=== PATIENT | female | born 1995 | race Caucasian/White ===

== ENCOUNTER 2018-06-27 18:14 | Emergency (ER) | payer MEDICAID ==
[~2018-06-27] VITALS: Ht 154.9 cm; Wt 63.5 kg
[2018-06-27 19:29] VITALS: BP 121/84
--- NOTE | 2018-06-27 19:38 | NUR ---
PT AMBULATED TO LOBBY. PROVIDING URINE.
[2018-06-27] MEDS ORDERED: ONDANSETRON 4 MG ODT PO ONE (19:40)
--- NOTE | 2018-06-27 19:50 | NUR ---
PT PLACED IN BED 4.
[2018-06-27 19:57] LABS: BASOPHILS % (AUTO) 0.5 % (0.0-2.0); EOSINOPHILS % (AUTO) 0.4 % (0.0-4.0); HEMOGLOBIN 14.2 g/dL (12.0-16.0); LYMPHOCYTES # (AUTO) 2.1 K/uL (2.5-16.5); LYMPHOCYTES % (AUTO) 23.6 % (20.5-51.1); MEAN CORPUSCULAR HEMOGLOBIN 33 pg (27-31); MEAN CORPUSCULAR HGB CONC 36 g/dL (33-37); MEAN CORPUSCULAR VOLUME 93.2 fL (80-94); MONOCYTES # (AUTO) 0.4 K/uL (0.8-1.0); MONOCYTES % (AUTO) 4.6 % (1.7-9.3); NEUTROPHILS # (AUTO) 6.3 K/uL (1.8-7.7); NEUTROPHILS % (AUTO) 70.9 % (42.2-75.2); PLATELET COUNT (AUTO) 245 K/uL (140-450); RED BLOOD CELL COUNT(AUTO) 4.29 MIL/uL (4.20-5.40); RED CELL DISTRIBUTION WIDTH 12.9 % (11.6-13.7); WHITE BLOOD COUNT (AUTO) 8.9 K/uL (4.8-10.8)
[2018-06-27 19:57] LABS: APPEARANCE,URINE CLEAR (CLEAR); BILIRUBIN,URINE NEGATIVE (NEGATIVE); BLOOD, URINE NEGATIVE (NEGATIVE); COLOR,URINE YELLOW (YELLOW); LEUKOCYTE ESTERASE ,URINE NEGATIVE (NEGATIVE); NITRITE, URINE NEGATIVE (NEGATIVE); PH,URINE 6.5 (5.0-9.0); UGLUCOSE NEGATIVE (NEGATIVE)
[2018-06-27] MEDS ORDERED: NACL 0.9% 1,000 ML IV ONE (20:00)
--- NOTE | 2018-06-27 20:00 | NUR ---
BIB SELF. REPORTS BEING 9 WEEKS EXPERIENCING N/V. DENIES ABD PAIN OR VAGINAL DISCHARGE. STATES SHE HAS DIZZINESS UPON STANDING. NO OTHER SYMPTOMS REPORTED. BED IN LOW LOCKED POSITION.
[2018-06-27 20:10] LABS: ALBUMIN 3.9 g/dL (3.4-5.0); ANION GAP 14.7 (8-16); CARBON DIOXIDE 24.1 mmol/L (21-32); CREATININE 0.6 mg/dL (0.6-1.3); POTASSIUM 3.8 mmol/L (3.5-5.1); TOTAL BILIRUBIN 0.5 mg/dL (0.0-1.0)
--- NOTE | 2018-06-27 20:32 | NUR ---
PATIENT STATES NAUSEA IS IMPROVED. FLUIDS STILL INFUSING.
[2018-06-27 21:31] VITALS: BP 121/84
--- NOTE | 2018-06-27 21:31 | NUR ---
Patient discharged with v/s stable. Written and verbal after care instructions given and explained. Patient alert, oriented and verbalized understanding of instructions. Ambulatory with steady gait. All questions addressed prior to discharge. ID band removed. Patient advised to follow up with PMD. Rx of ZOFRAN, TYLENOL given. Patient educated on indication of medication including possible reaction and side effects. Opportunity to ask questions provided and answered.
== END 2018-06-27 21:31 | disposition home or self-care (01) ==
LOC: MED 18:14
DX: O21.0 Mild hyperemesis gravidarum (principal); Z3A.08 8 weeks gestation of pregnancy
CPT/HCPCS: 36415; 76815; 80053; 81003; 81025; 85025; 86901; 96360; 99284; Q0162; J7030

== ENCOUNTER 2018-07-21 12:14 | Emergency (ER) | payer MEDICAID ==
[~2018-07-21] VITALS: Ht 154.9 cm; Wt 61.7 kg
[2018-07-21 12:23] VITALS: BP 100/69
--- NOTE | 2018-07-21 12:37 | NUR ---
PT TO ED WITH C/O N/V DUE TO PEGNANCY. PT REPORTS MULTIPLE EPISODES OF VOMITTING. NO ABD DISTENTION NOTED. DENIES ANY PAIN. PT REPORTS BEING 12.5 WEEKS WITH LMP BEING 04/25/18. . PT PLACED INTO BED, PENDING MD MARLOW.
[2018-07-21] MEDS ORDERED: NACL 0.9% 1,000 ML IV ONE ×2 (12:50→14:15)
--- NOTE | 2018-07-21 14:00 | NUR ---
PT REPORTING RELIEF POST NS ADMIN.
--- NOTE | 2018-07-21 15:00 | NUR ---
IV removed, catheter intact and site benign. Applied folded 4x4 gauze and tape to stop bleeding.
[2018-07-21 15:05] VITALS: BP 110/71
--- NOTE | 2018-07-21 15:05 | NUR ---
Patient discharged with v/s stable. Written and verbal after care instructions given and explained. Patient verbalized understanding. Ambulatory with steady gait. All questions addressed prior to discharge. Advised to follow up with PMD.
== END 2018-07-21 15:05 | disposition home or self-care (01) ==
LOC: MED 12:14
DX: O26.891 Other specified pregnancy related conditions, first trimester (principal); O21.8 Other vomiting complicating pregnancy; E86.0 Dehydration; Z3A.10 10 weeks gestation of pregnancy
CPT/HCPCS: 81025; 96360; 96361; 99283; J7030

== ENCOUNTER 2018-10-08 12:38 | Emergency (ER) | payer MEDICAID ==
[~2018-10-08] VITALS: Ht 157.5 cm; Wt 64.9 kg
[2018-10-08 12:48] VITALS: BP 113/53
--- NOTE | 2018-10-08 12:55 | NUR ---
PT SENT TO L&D VIA W/C. REPORT GIVEN TO MITZI MICHEL.
[2018-10-08] MEDS ORDERED: ONDA4TAB PO (13:44)
[2018-10-08] MEDS ORDERED: PREN-380 PO (13:44)
--- NOTE | 2018-10-08 13:55 | NUR ---
PT RETURNED FROM L&D AND WAS CLEARED. PATIENT SENT TO ER LOBBY TO WAIT FOR AVAILABLED BED.
--- NOTE | 2018-10-08 15:20 | NUR ---
PT PLACED IN BED 11.
--- NOTE | 2018-10-08 15:39 | NUR ---
PT C/O N/V FOR LAST FEW WEEKS. VOMITTED X2 IN 24 HRS. PT STATES SHE HAS A HEADACHE AND FEELS DEHYDRATED. LMP APRIL 25 2018. 24 WEEKS W/ NO VAGINAL BLEEDING. PT IN BED WITH MOTHER AT BEDSIDE.
--- NOTE | 2018-10-08 16:01 | NUR ---
IV STARTED AND LABS DRAWN ON PT.
--- NOTE | 2018-10-08 16:06 | NUR ---
NS BOLUS STARTED
[2018-10-08 16:18] LABS: BASOPHILS % (AUTO) 0.2 % (0.0-2.0); HEMATOCRIT 38.1 % (36-48); HEMOGLOBIN 13.4 g/dL (12.0-16.0); LYMPHOCYTES # (AUTO) 1.4 K/uL (2.5-16.5); LYMPHOCYTES % (AUTO) 15.2 % (20.5-51.1); MEAN CORPUSCULAR HEMOGLOBIN 34 pg (27-31); MEAN CORPUSCULAR HGB CONC 35 g/dL (33-37); MEAN CORPUSCULAR VOLUME 96.4 fL (80-94); MONOCYTES # (AUTO) 0.3 K/uL (0.8-1.0); MONOCYTES % (AUTO) 3.7 % (1.7-9.3); NEUTROPHILS # (AUTO) 7.4 K/uL (1.8-7.7); NEUTROPHILS % (AUTO) 80.9 % (42.2-75.2); PLATELET COUNT (AUTO) 244 K/uL (140-450); RED BLOOD CELL COUNT(AUTO) 3.95 MIL/uL (4.20-5.40); RED CELL DISTRIBUTION WIDTH 13.4 % (11.6-13.7); WHITE BLOOD COUNT (AUTO) 9.1 K/uL (4.8-10.8)
[2018-10-08 16:20] LABS: APPEARANCE,URINE CLEAR (CLEAR); BILIRUBIN,URINE NEGATIVE (NEGATIVE); BLOOD, URINE NEGATIVE (NEGATIVE); COLOR,URINE YELLOW (YELLOW); LEUKOCYTE ESTERASE ,URINE TRACE (NEGATIVE); NITRITE, URINE NEGATIVE (NEGATIVE); UGLUCOSE NEGATIVE (NEGATIVE)
[2018-10-08] MEDS ORDERED: ACETAMINOPHEN 325 MG TAB PO ONE (16:20)
[2018-10-08 16:27] LABS: RBC,URINE 0-5 /HPF (0-5)
[2018-10-08] MEDS ORDERED: NACL 0.9% 1,000 ML IV ONE (16:40)
[2018-10-08 16:54] LABS: POTASSIUM 3.9 mmol/L (3.5-5.1)
[2018-10-08 16:55] LABS: ANION GAP 14.6 (8-16); BILIRUBIN,DIRECT 0.1 mg/dL (0.0-0.3); CARBON DIOXIDE 23.3 mmol/L (21-32); CREATININE 0.5 mg/dL (0.6-1.3); TOTAL BILIRUBIN 0.3 mg/dL (0.0-1.0)
[2018-10-08 18:20] VITALS: BP 103/58
== END 2018-10-08 18:20 | disposition home or self-care (01) ==
LOC: MED 12:38
DX: O21.2 Late vomiting of pregnancy (principal); O26.892 Other specified pregnancy related conditions, second trimester; R51 Headache; Z3A.24 24 weeks gestation of pregnancy; Z79.899 Other long term (current) drug therapy
CPT/HCPCS: 36415; 59025; 80048; 80076; 81001; 81025; 82150; 83690; 85025; 87086; 96360; 99283; J7030

== ENCOUNTER 2018-12-16 20:23 | Emergency (ER) | payer MEDICAID ==
[~2018-12-16] VITALS: Ht 154.9 cm; Wt 64.0 kg
[~2018-12-16 20:23] MED LIST: ONDA4TAB PO; PREN-380 PO
[2018-12-16 20:30] VITALS: BP 121/61
--- NOTE | 2018-12-16 20:32 | NUR ---
TO LOBBY A/W BED AMBULATORY
--- NOTE | 2018-12-16 23:15 | NUR ---
PT AMBULATES TO BED 04 WITH STEADY GAIT. PT REQUESTING URINE CUP.
--- NOTE | 2018-12-16 23:20 | NUR ---
L&D RN AT BEDSIDE FOR OB ASSESSMENT.
--- NOTE | 2018-12-16 23:30 | NUR ---
23 YO F BIB SELF/MOM PRESENTS TO ED C/O VOMITING 3-4/DAY, INTERMITTENT 5/10 HEADACHE, AND INTERMITTENT DIZZINESS SINCE WEDNESDAY. PT IS 35 WEEKS . DENIES ABD PAIN, LOWER BACK PAIN, VAGINAL BLEEDING. PT AMBULATES WITH STEADY GAIT. PT REPORTS MILD NAUSEA, NO VOMITING AT THIS TIME. . -- PT AWAKE, A/O X 4. CALM, COOPERATIVE. BEHAVIOR AGE APPROPRIATE. ANSWERS QUESTIONS WITHOUT DIFFICULTY IN CLEAR, FULL SENTENCES. -- SKIN PINK, WARM, DRY. BREATHING EVEN, UNLABORED. PMH-- DENIES RX-- DENIES
--- NOTE | 2018-12-16 23:43 | NUR ---
DR. CHERRY EVALUATING AT BEDSIDE.
[2018-12-16] MEDS ORDERED: NACL 0.9% 1,000 ML IV ONE (23:55)
[2018-12-17] MEDS ORDERED: ACETAMINOPHEN 325 MG TAB PO ONE (00:50)
[2018-12-17 01:02] LABS: APPEARANCE,URINE SL CLOUDY (CLEAR); BILIRUBIN,URINE NEGATIVE (NEGATIVE); BLOOD, URINE NEGATIVE (NEGATIVE); COLOR,URINE YELLOW (YELLOW); LEUKOCYTE ESTERASE ,URINE 2+ (NEGATIVE); NITRITE, URINE NEGATIVE (NEGATIVE); PH,URINE 7.5 (5.0-9.0); UGLUCOSE NEGATIVE (NEGATIVE)
[2018-12-17 01:13] LABS: RBC,URINE 0-5 /HPF (0-5)
--- NOTE | 2018-12-17 01:15 | NUR ---
PT MEDICATED WITH 650 MG PO TYLENOL FOR 5/10 HEADACHE. WILL REASSESS.
--- NOTE | 2018-12-17 02:20 | NUR ---
PT REPORTS RELIEF IN PAIN; 0/10. DENIES CESPEDES AT THIS TIME.
[2018-12-17 02:23] VITALS: BP 108/59
--- NOTE | 2018-12-19 08:08 | NUR ---
Late entry. Confirmed with RN that 0.9 NS IV 1000ml completed at 0100
== END 2018-12-17 02:23 | disposition home or self-care (01) ==
LOC: MED 20:23
DX: O21.2 Late vomiting of pregnancy (principal); O23.43 Unspecified infection of urinary tract in pregnancy, third trimester; R82.71 Bacteriuria; Z79.899 Other long term (current) drug therapy; Z3A.34 34 weeks gestation of pregnancy
CPT/HCPCS: 81001; 81025; 87086; 96360; 99283; J7030